=== PATIENT | male | born 1955 | race Caucasian/White ===

== ENCOUNTER 2019-09-21 17:32 | Emergency (ER) | payer BC, OTHER ==
[2019-09-21 17:44] VITALS: BP 141/97; PULSE 78
[2019-09-21] MEDS ORDERED: Lidocaine 1% 10 ML MDV INJECT ONE (18:00)
--- NOTE | 2019-09-21 18:04 | EDM.PDOC ---
ED HPI GENERAL MEDICAL PROBLEM - General Chief Complaint: Laceration Stated Complaint: HEAD LAC Time Seen by Provider: 09/21/19 17:46 Source of Information: Reports: Patient, Family (spouse) History Limitations: Reports: No Limitations - History of Present Illness INITIAL COMMENTS - FREE TEXT/NARRATIVE: 64-year-old male presents to the ED for evaluation of a laceration to his right upper mid forehead. Patient reports that [place] the front wheel caught a 4 x 4 wooden post. This propelled the post upwards and it struck him in the right forehead resulting in a 3.5 cm laceration. They came to the hospital within 10 to 15 minutes of the injury. He cannot remember when his last tetanus toxoid was updated. He denies any loss of conscious. He denies any other injuries. In particular he has no cervical neck pain. Onset: Today, Sudden Onset Date: 09/21/19 Onset Time: 17:30 Duration: Minutes: Location: Reports: Face Quality: Reports: Ache (Deep laceration right upper mid forehead.), Throbbing Severity: Mild Improves with: Reports: None Worsens with: Reports: None Context: Reports: Trauma (4 x 4 wooden post). 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 STOCK: Reports: Other (see below) (None.) - Related Data Allergies Allergy/AdvReac Type Severity Reaction Status Date / Time Penicillins Allergy Swelling Verified 09/21/19 17:44 wasp Allergy Hives Uncoded 09/21/19 17:44 Home Meds: Home Meds Ascorbic Acid [Vitamin C] 500 mg PO DAILY 06/18/13 [History] Multivitamins 1 cap PO DAILY 06/18/13 [History] Acetaminophen/oxyCODONE [Percocet 325-5 MG] 1 tab PO Q6H PRN #20 tablet 04/11/16 [Rx] Lactobacillus 3/Fos/Pantethine [Probiotic & Acidophilus] 1 cap PO ASDIRECTED 04/11/16 [History] Metoprolol Succinate [Toprol XL 50mg] 100 mg PO DAILY 04/11/16 [History] Naproxen [Naprosyn] 500 mg PO Q12HR #20 tablet 04/11/16 [Rx] predniSONE [Deltasone] 20 mg PO ASDIRECTED #15 tablet 10/09/18 [Rx] Past Medical History HEENT History: Reports: Impaired Vision Other HEENT History: wears glasses Cardiovascular History: Reports: Hypertension Musculoskeletal History: Reports: Fracture - Past Surgical History GI Surgical History: Reports: Cholecystectomy, Hernia Repair/Other Musculoskeletal Surgical History: Reports: Other (See Below) Other Musculoskeletal Surgeries/Procedures:: back sx- disc repair Social & Family History - Tobacco Use Smoking Status *Q: Never Smoker Second Hand Smoke Exposure: No - Caffeine Use Caffeine Use: Reports: None - Recreational Drug Use Recreational Drug Use: No - Living Situation & Occupation Living situation: Reports: Occupation: Employed ED ROS GENERAL - Review of Systems Review Of Systems: See Below Constitutional: Denies: Fever, Chills, Malaise, Weakness, Fatigue HEENT: Reports: Glasses ([place].), Other (Laceration right upper mid forehead today.) Respiratory: Reports: No Symptoms Cardiovascular: Reports: Blood Pressure Problem, Dyspnea on Exertion. Denies: Chest Pain, Claudication, Edema, Lightheadedness, Orthopnea Endocrine: Reports: Fatigue (On occasion.) GI/Abdominal: Reports: No Symptoms : Reports: Frequency, Other (Nocturia x2. Known BPH.) Musculoskeletal: Reports: Neck Pain (Knees hips lower back neck at times), Karli ulder Pain, Joint Pain Skin: Reports: No Symptoms Neurological: Reports: No Symptoms Psychiatric: Reports: No Symptoms Hematologic/Lymphatic: Reports: No Symptoms Immunologic: Reports: No Symptoms ED EXAM, SKIN/RASH Exam: See Below Exam Limited By: No Limitations General Appearance: Alert, WD/WN, No Apparent Distress, Other (Temperature is 36.5 with a heart rate of 78 and sinus. Respiratory of 16 with O2 sats of 95% room air. BP 141/97.) Eye Exam: Bilateral Eye: Normal Inspection, PERRL Nose: Normal Inspection Throat/Mouth: Normal Inspection, Normal Lips, Normal Oropharynx Head: Other (Patient has a 3.5 cm laceration just to the right of the midline right upper forehead. It does travel up towards the hairline.) Neck: Normal Inspection ( It is gaping and will require laceration repair.), Limited Range of Motion (Limited lateral flexion and extension due to arthritic changes. He states no worse than normal.), Tender Lateral. No: Lymphadenopathy (L), Lymphadenopathy (R) Respiratory/Chest: No Respiratory Distress, Lungs Clear, Normal Breath Sounds, No Accessory Muscle Use Extremities: Normal Inspection, Normal Range of Motion, Non-Tender, No Pedal Edema Neurological: Alert, Oriented, CN II-XII Intact, Normal Cognition Psychiatric: Normal Affect, Normal Mood Skin: Warm, Dry, Normal Color, No Rash, Other ED SKIN PROCEDURES - Laceration/Wound Repair Right Upper Face Appearance: Subcutaneous, Clean Distal NVT: Neuro & Vascular Intact Anesthetic Type: Local Local Anesthesia - Lidocaine (Xylocaine): 1% Plain Local Anesthetic Volume: 4cc Skin Prep: Saline Exploration/Debridement/Repair: Wound Explored Closed with: Sutures Lac/Wound length In cm: 3.5 Suture Size: 4-0 # of Sutures: 5 Suture Type: Prolene Course - Vital Signs Text/Narrative:: 64-year-old male presents to the ED with a 3.5 cm laceration to his right upper mid forehead. He states he is front wheel of his tractor caught the edge of a 4 x 4 wooden post which propelled it upward striking him in the mid forehead. He did not knock him off the tractor. He denies loss of consciousness. He cannot remember when his last tetanus toxoid was updated. However when I look it was given in June 2013 and he will not need a update today. Plan because of the nature of the trauma and the large piece of wood that struck him CT head will be obtained to rule out a occult skull fracture or subdural hematoma. Laceration will be repaired under local anesthetic. Last Recorded V/S: Last Vital Signs Temp 36.5 C 09/21/19 17:42 Pulse 78 09/21/19 17:42 Resp 16 09/21/19 17:42 BP 141/97 H 09/21/19 17:42 Pulse Ox 95 09/21/19 17:42 - Orders/Labs/Meds Meds: Medications Discontinued Medications Generic Name Dose Route Start Last Admin Trade Name Sissy PRN Reason Stop Dose Admin Lidocaine HCl 10 ml 09/21/19 18:00 Xylocaine 1% INJECT 09/21/19 18:01 ONETIME ONE - Radiology Interpretation Free Text/Narrative:: 64-year-old male presents to the ED after suffering blunt force trauma to his mid forehead on the right side. [place] the front wheel of the tractor struck a 4 x 4 wooden post which was standing upwards. It propelled the post upwards striking him in the right mid forehead. It did not knock him off the tractor and he did not lose consciousness. He did result in a 3.5 cm laceration just to the lateral of the midline on the right side. It does travel up into the hairline. Plan CTA of the head to be done due to the nature of the trauma with tremendous force. Laceration is gaping and will require laceration repair. This toxoid was identified to be up-to-date in June 2013. - Re-Assessments/Exams Free Text/Narrative Re-Assessment/Exam: 09/21/19 18:24: CT of the head shows ventricles along with the basal cisterns and sulci over the convexities are within normal limits for the patient's age. Minimal area of low density is noted within the left occipital white matter which most likely represents a small old white matter infarct. No other abnormal parenchymal densities are seen. No evidence of intracranial hemorrhage. No midline shift or mass-effect is identified. Bone window settings were reviewed which showed no acute osseous findings. Visualized paranasal sinuses and mastoid sinuses are clear. 09/21/19 19:18 repaired using 4-0 Prolene suture times 5 sutures to provide wound apposition and hemostasis. Sutures will need to be removed in 10 days time. Patient will be able to daily cleanse the wound with soap and water and showering. He will then placed topical antibiotic such as bacitracin or Polysporin on the wound once daily to keep it clean and prevent infection. Departure - Departure Time of Disposition: 19:19 Disposition: Home, Self-Care 01 Condition: Fair Clinical Impression: Laceration of scalp without foreign body Qualifiers: Encounter type: initial encounter Qualified Code(s): S01.01XA - Laceration without foreign body of scalp, initial encounter - Discharge Information *PRESCRIPTION DRUG MONITORING PROGRAM REVIEWED*: Not Applicable *COPY OF PRESCRIPTION DRUG MONITORING REPORT IN PATIENT VANE: Not Applicable Instructions: Laceration Care, Adult Referrals: Janine Stevens PA-C [Primary Care Provider] - Forms: ED Department Discharge Additional Instructions: Evaluation in the emergency room today in regards to blunt force trauma to your right mid upper forehead. This resulted in a 3.5 cm laceration to the forehead and scalp to the hairline. CT of the head does not reveal any fractures in the skull and no intracranial bleeding. Wound was cleansed and then sutured under local anesthetic to provide wound closure. Sutures were placed in total. Treatment at home is to cleanse the wound daily with soap and water. Showering is okay. Then apply topical antibiotic such as bacitracin or Polysporin to the wound once daily likely at bedtime. Sutures will need to be removed in 10 days time. Call your personal care provider to arrange for suture removal. Sepsis Event Note (ED) - Evaluation Sepsis Screening Result: No Definite Risk - Focused Exam Vital Signs: Vital Signs Temp Pulse Resp BP Pulse Ox 09/21/19 17:42 36.5 C 78 16 141/97 H 95
--- NOTE | 2019-09-21 18:27 | CT ---
Head CT Technique: Multiple axial sections through the brain were obtained. Intravenous contrast was not utilized. Comparison: No prior intracranial imaging is available. Findings: Ventricles along with basal cisterns and sulci over the convexities are within normal limits for the patient's age. Minimal area of low density is noted within the left occipital white matter which most likely represent a small old white matter infarct. No other abnormal parenchymal densities are seen. No evidence of intracranial hemorrhage. No midline shift or mass-effect is seen. Bone window settings were reviewed which showed no acute osseous finding. Visualized paranasal sinuses and mastoid sinuses are clear. Impression: 1. 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 2. No acute intracranial abnormality is appreciated. Diagnostic code #2 This report was dictated in MDT
== END 2019-09-21 19:40 | disposition home or self-care (01) ==
LOC: JD.ED 17:32
DX: S01.81XA Laceration without foreign body of other part of head, initial encounter (principal); S01.01XA Laceration without foreign body of scalp, initial encounter; I10 Essential (primary) hypertension; Z88.0 Allergy status to penicillin; Z91.030 Bee allergy status; Z79.899 Other long term (current) drug therapy; V84.5XXA Driver of special agricultural vehicle injured in nontraffic accident, initial encounter
CPT/HCPCS: 12013; 70450; 99283; J2001; 99282

== ENCOUNTER 2022-12-24 15:23 | Emergency (ER) | payer OTHER, BC ==
[2022-12-24] MEDS ORDERED: Acetaminophen/HYDROcodone 325-5 MG Tab PO ONE (16:37)
[2022-12-24 16:54] VITALS: BP 142/89; PULSE 73
== END 2022-12-24 17:11 | disposition home or self-care (01) ==
LOC: JD.ED 15:23
DX: S82.391A Other fracture of lower end of right tibia, initial encounter for closed fracture (principal); I10 Essential (primary) hypertension; Z88.0 Allergy status to penicillin; Z91.038 Other insect allergy status; V89.2XXA Person injured in unspecified motor-vehicle accident, traffic, initial encounter
CPT/HCPCS: 72070; 72100; 73610; 99284; A9270; 99283

== ENCOUNTER 2023-01-04 07:45 | Day surgery (SDC) | payer OTHER, BC ==
[~2023-01-04 07:45] MED LIST: Clindamycin Phosphate in D5W 900 MG in Premix Bag 1 BAG IV ONE; Lactated Ringers 1,000 ML IV SCH; Lidocaine 1% 4 ML ONE; Propofol 200 MG/20 ML SDV ONE; Sodium Chloride 0.9% 10 ML Syringe FLUSH PRN; Sodium Chloride 0.9% 10 ML Syringe FLUSH SCH; ceFAZolin 2 GM Vial ONE; fentaNYL 100 MCG/2 ML SDV ONE
[2023-01-04] MEDS ORDERED: Bupivacaine 0.25% 10 ML SDV ONE ×2 (07:51→10:07)
[2023-01-04] MEDS ORDERED: Ropivacaine 0.5% 5 MG/ML 30 ML SDV ONE (07:52)
[2023-01-04] MEDS ORDERED: Midazolam 1 MG/ML 2 ML SDV ONE (08:14)
[2023-01-04] MEDS ORDERED: Ondansetron 4 MG/2 ML SDV ONE (08:23)
[2023-01-04] MEDS ORDERED: Clindamycin in 0.9 % Sod Chlor 900 MG in Premix Bag 1 BAG IV SCH ×2 (09:15)
[2023-01-04] MEDS ORDERED: Metoclopramide 10 MG/2 ML SDV ONE (09:36)
[2023-01-04] MEDS ORDERED: Dexamethasone 4 MG/ML 5 ML MDV ONE (09:37)
[2023-01-04] MEDS ORDERED: ePHEDrine 50 MG/ML SDV ONE (09:42)
[2023-01-04] MEDS ORDERED: fentaNYL 100 MCG/2 ML SDV ONE (09:58)
[2023-01-04] MEDS ORDERED: oxyCODONE 5 MG Tab PO SCH (11:22)
[2023-01-04 13:41] VITALS: BP 126/72; PULSE 65
== END 2023-01-04 13:05 | disposition home or self-care (01) ==
LOC: JD.SDS 07:45
PROVIDERS: ATTEND Orthopaedic Surgery
DX: S82.51XA Displaced fracture of medial malleolus of right tibia, initial encounter for closed fracture (principal); I10 Essential (primary) hypertension; Z88.0 Allergy status to penicillin; Z79.899 Other long term (current) drug therapy; Z79.82 Long term (current) use of aspirin; Z79.01 Long term (current) use of anticoagulants; V49.9XXA Car occupant (driver) (passenger) injured in unspecified traffic accident, initial encounter
CPT/HCPCS: 27766; 76000; A9270; C1713; C1769; J0690; J1100; J2250; J2704; J2765; J2795; J3010; J3490; J7120; 01480; J2405